=== PATIENT | female | born 1975 | race Caucasian/White ===

== ENCOUNTER → 2016-09-24 | Outpatient (CLI) | payer OTHER ==
[~2016-09-24] MED LIST: ATV5X PO; BCPILLS PO; FLUO10CA48 PO; LEVO25TA5 PO; MULT-612 PO; OMEP40CA41 PO; OXYC1TAB3 PO; RANI150T3 PO
--- NOTE | 2016-09-24 16:08 | MAMMOGRAPHY REPORT ---
ULTRASOUND OF RIGHT BREAST: 09/24/2016 CLINICAL HISTORY: 41-year-old woman with a family history of breast cancer = mother and aunt present s for follow-up ultrasound of the right breast. The exam performed on 07/13/2016 reported a newly v isualized possible complicated cyst in the 10:00 right breast, 5 cm from the nipple and other probab le fibrocystic changes throughout the right breast on ultrasound. COMPARISON: Comparison is made to exams dated: 07/05/2014 ultrasound and 07/05/2014 mammogram - [facility]. FINDINGS: Real-time high-resolution ultrasound was performed in the 10:00 to 11:00 axes of the right breast. In the 10:00 right breast, 3 cm from the nipple, there is an oval parallel circumscribed h ypoechoic solid mass versus normal fat lobule. It is located 1-1/2 cm deep to the dermis and measur es 8.7 x 3.9 x 7.6 mm. This was not seen on the previous ultrasounds but may simply represent a fat lobule. In the 10:00 right breast, 5 cm from the nipple, there is a circumscribed parallel slightl y hypoechoic mass with posterior acoustic enhancement, measuring 9.0 x 5.3 x 10.3 mm. The ultrasoun d measurements are similar to those obtained on 07/13/2016. However, this mass was not visualized o n 08/01/2015, and visually it appears thicker comparing to the prior ultrasound at which time it asiya eared more elongated. This is indeterminate given the interval development. Another rounded hypoec hoic solid-appearing mass is identified in the 10:00 right breast, 1 cm from the nipple, measuring 3 .9 x 3.3 x 3.8 mm. This was seen on the prior ultrasounds dating back to 08/01/2015 but it was not measured at that time. Therefore, this is also indeterminate. IMPRESSION: ACR BI-RADS CATEGORY 4: SUSPICIOUS - FOLLOW-UP RECOMMENDED 1. Ultrasound guided core needle biopsy 2 is recommended in the right 10:00 breast, 1 cm and 5 cm from the nipple, for indeterminate solid-appearing masses identified on ultrasound. These results and recommendations were discussed with the patient at the time of the exam. Pending pathology results, would continue breast screening regimen including bilateral mammography due in De cember 2017 plus or minus the addition of whole breast screening ultrasound as well, given her famil y history of breast cancer. Kellie Beckman M.D. ay/:09/24/2016 15:47:48 Client Success Specialist: Yu CARRION)(Andra), [facility] letter sent: Abnormal 4/5 BI-RADS Code: ACR BI-RADS Category 4: Suspicious
== END | disposition home or self-care (01) ==
LOC: C.MAMM 13:26
PROVIDERS: ATTEND Obstetrics & Gynecology
DX: N64.89 Other specified disorders of breast (principal)

== ENCOUNTER → 2016-10-09 | Outpatient (CLI) | payer OTHER ==
--- NOTE | 2016-10-09 09:49 | Discharge Instructions ---
Discharge Instructions Procedure Procedure Date: Oct 09, 2016. Reason for visit: Right Masses. Discharge Discharge Date: Oct 09, 2016. Discharge Diagnosis: post right 10:00 breast ultrasound guided core biopsy x 2 Instructions Activity Recommendations: Additional Limitations (see below) Return to School/Work: no limitations Recommended Home Diet: No Limitations Provider Instructions: ACTIVITY RECOMMENDATIONS: * No lifting, pushing, pulling or exercising the affected side for three days. RETURN TO SCHOOL/WORK: * You may return to work/school after the procedure, but do not perform any strenuous activities for 24 to 48 hours. MEDICATIONS: * Tylenol (two 325 mg) every four to six hours if needed for mild pain (if not allergic to Tylenol). DIET: * Resume previous diet. SPECIAL CARE INSTRUCTIONS: * Keep biopsy site dry for 24 hours. May shower after 24 hours, but do not soak (bathe) incision. * May remove Tegaderm (plastic patch) tomorrow AFTER showering. * Leave the steri-strips on for one week. Allow the steri-strips to fall off by themselves. If not off after one week, you may remove them. You may place a Bandaid crosswise over the strips, if desired. * Apply ice 10 minutes on and 10 minutes off as needed. * Wear a bra at bedtime to sleep more comfortably for 2-3 days. * Your referring physician should have the results after approximately 5 to 7 business days. * Call for unusual bleeding, fever, drainage, etc or if you have any questions call [phone] during normal business hours or after hours call Dr Beckman, . FOLLOW UP VISIT: Follow-up with Referring Physician as scheduled. Allergies Coded Allergies: Morphine (Verified Allergy, Unknown, HISTAMINE REACTION,BODY ACHES, 08/16/14 ) Hydromorphone (Verified Adverse Reaction, Unknown, SHORTNESS OF BREATH, 08/16/14) patient just states it is very pain ful if mot pushed very slow [place] Recommendations: Call your doctor if: * Temperature above 101 degrees * Pain not relieved by pain medicine ordered * There is increased drainage or redness from any incision * You have any unanswered questions or concerns. Your Doctors Instructions noted above were prepared by provider Kellie Beckman. Patient Signature Section: Patient Instructions Signature Page Daniela Donahue Patient (or Guardian) Signature/Date: I have read and understand the instructions given to me by my caregivers. Caregiver/RN/Doctor Signature/Date: The above-named patient and/or guardian has received patient instructions on this date. + Original Patient Signature Page (only) stays with chart. Please make copy for patient.
--- NOTE | 2016-10-09 13:36 | MAMMOGRAPHY REPORT ---
ULTRASOUND GUIDED BIOPSY RIGHT BREAST: 10/09/2016 CLINICAL HISTORY: 2 indeterminate solid versus cystic masses in the 10:00 right breast, 1 cm from th e nipple and 5 cm from the nipple. Patient presents for ultrasound-guided core needle biopsy 2. Please refer to the report from right breast ultrasound guided core biopsy performed at the same reji e for full detail. IMPRESSION: ULTRASOUND GUIDED BIOPSY Please refer to the report from right breast ultrasound guided core biopsy performed at the same reji e for full detail. Kellie Beckman M.D. ay/:10/09/2016 11:36:47 Business Process Expert: Yu CARRION)(Andra), [facility]
--- NOTE | 2016-10-09 13:37 | MAMMOGRAPHY REPORT ---
UNILATERAL RIGHT DIGITAL DIAGNOSTIC MAMMOGRAM TOMOSYNTHESIS: 10/09/2016 CLINICAL HISTORY: Status post ultrasound guided core needle biopsy 2 in the right 10:00 breast. Please refer to the report from right breast ultrasound guided core biopsy performed at the same reji e for full detail. IMPRESSION: POST PROCEDURE IMAGING FOR MARKER PLACEMENT Please refer to the report from right breast ultrasound guided core biopsy performed at the same reji e for full detail. Approximately 10% of breast cancers are not detected with mammography. A negative mammographic repor t should not delay biopsy if a clinically suggestive mass is present. Kellie Beckman M.D. ay/:10/09/2016 09:51:04 Learning Development Specialist: Yu CARRION)(Andra), [facility] [address] BI-RADS Code: Post Procedure Imaging For Marker Placement
--- NOTE | 2016-10-09 16:39 | MAMMOGRAPHY REPORT ---
THIS REPORT HAS BEEN AMENDED. MULTIPLE ULTRASOUND GUIDED BIOPSIES RIGHT BREAST: 10/09/2016 CLINICAL HISTORY: 41-year-old woman with indeterminate solid-appearing masses in the 10:00 right lori ast, 1 cm and 5 cm from the nipple. She presents for ultrasound guided core needle biopsy 2. COMPARISON: Comparison is made to exams dated: 09/24/2016 ultrasound, 07/05/2014 ultrasound, and mammogram - [facility]. PATIENT CONSENT: The procedure, risks and benefits were discussed with the patient and informed writ ten consent was obtained. Specific risks to this procedure include: bleeding, infection, puncture of adjacent structure, nontarget biopsy, sampling error, metal allergy and medication reaction. PROCEDURE DESCRIPTION: A time out was performed and the right breast was agreed as the site of biops y. The skin was prepped and draped in the usual sterile fashion. First the smaller rounded hypoecho ic solid versus cystic mass in the 10:00 right breast, 1 cm from the nipple was identified and targe kieran for biopsy. Skin was prepped and draped in the usual sterile fashion. Subcutaneous and intrapa renchymal 1% buffered lidocaine, with and without epinephrine, was administered as local anesthesia. A skin incision was made. Through the incision, 2 samples were obtained with a 14 gauge Achieve bi opsy device. After the second biopsy sample the mass was no longer visualized, likely representing a cyst that resolved. Therefore, a ribbon shaped metallic marker was placed at the biopsy site. Hem ostasis was achieved after manual compression. The patient tolerated the procedure well and there wa s no immediate complication. Then the slightly larger isoechoic solid versus cystic mass in the 10:00 right breast, 57 m from the nipple was identified and targeted for biopsy. Additional buffered lidocaine with and without epin ephrine was administered as local anesthesia. A small skin incision was made. Through the incision , 3 samples were obtained using a 14-gauge achieve core biopsy device. A wing shaped metallic biops y marker was placed within this mass. There was no immediate complication. All of the samples were sent to the pathology department in appropriately labeled containers. Postprocedure right CC and ML 2-D digital and tomosynthesis images demonstrate 2 new metallic biopsy markers and no significant hematoma in the 10:00 anterior and posterior breast, at the site of the biopsied masses seen on ultrasound. Pending benign pathology results, a short interval follow-up right mammogram including repeat target ed ultrasound in the 10:00 axis is recommended to ensure stability of a third non-biopsied benign-ap pearing mass versus fat lobule as well as the 2 biopsied masses in 6 months. IMPRESSION: ULTRASOUND GUIDED BIOPSY Status post ultrasound guided core needle biopsy of 2 indeterminate masses in the 10:00 right breast , with biopsy markers placed at each site. Pending benign pathology results, follow-up right diagnostic mammograms and repeat targeted ultrasou nd in the 10:00 axis is recommended to ensure stability of the non-biopsied mass versus fat lobule a lso identified in the 10:00 breast, as well as the 2 biopsied masses detailed above. Kellie Beckman M.D. ay/:10/09/2016 15:31:07 Thread Weaver: Yu CARRION)(Andra), [facility] AMENDMENT: 10/18/2016 Kellie Beckman M.D. Pathology results from the ultrasound-guided core needle biopsy of a mass in the 10:00 right breast, 1 cm from the nipple yielded fibrocystic change. Pathology from the ultrasound-guided core biopsy of a mass in the 10:00 right breast, 5 cm from the nipple yielded fibrocystic change. The pathology results are concordant with the imaging appearance of both masses as they were decreasing in size d uring the biopsies. A follow-up right diagnostic mammogram and repeat targeted ultrasound in the 10 :00 axis is still recommended to ensure stability of the other non-biopsied mass versus fat lobule, as previously described.
== END | disposition home or self-care (01) ==
LOC: C.MAMM 08:35
PROVIDERS: ATTEND Registered Nurse
DX: N63 Unspecified lump in breast (principal)

== ENCOUNTER → 2017-06-05 | Outpatient (CLI) | payer OTHER ==
--- NOTE | 2017-06-07 08:14 | MAMMOGRAPHY REPORT ---
BILATERAL DIGITAL DIAGNOSTIC MAMMOGRAM TOMOSYNTHESIS WITH CAD AND TARGETED BILATERAL ULTRASOUND: 05/16 CLINICAL HISTORY: 42-year-old woman presents after 2 benign right breast biopsies in the 10:00 axis y ielded fibrocystic change. Also due for annual bilateral mammography. TECHNIQUE: Bilateral breast tomosynthesis in addition to standard 2D mammography was [facility] Computer Aided Detection (CAD) system. COMPARISON: Comparison is made to exams dated: 10/09/2016 mammogram, 10/09/2016 ultrasound biopsy, 09/13 ultrasound biopsy, 09/24/2016 ultrasound, 07/05/2014 ultrasound, and 07/05/2014 mammogram - [facility]. BREAST COMPOSITION: The tissue of both breasts is heterogeneously dense, which may obscure small mas ses. FINDINGS: There are 2 stable metallic biopsy marker is in the 10:00 right breast anterior and middle depth. Slight nodularity in the superior middle to anterior left breast on the MLO could represent cysts although additional evaluation with ultrasound was performed. No other obvious new mass, focal area of architectural distortion or suspicious macrocalcifications are seen bilaterally. Targeted ultrasound was performed throughout the right 10:00 axis and the left superior breast. In t he 10:00 right breast, 1 cm from the nipple, numerous anechoic benign cysts are seen. The previously observed hypoechoic indeterminate solid versus cystic mass is not currently identified. In the 10:0 0 right breast, 3 cm from the nipple, there is an oval parallel circumscribed hypoechoic benign-appea ring solid mass versus prominent fat lobule measuring 9.6 x 3.6 x 8.4 mm. A new multilobulated anech oic cyst is identified in the 10:00 right breast, 2 cm from the nipple, measuring 6.5 x 6.1 mm. Anot her anechoic cyst is seen in the 10:00 right breast, 4 cm from the nipple, measuring 5.0 x 3.2 mm the biopsied mass in the 10:00 axis, 5 cm from the nipple has decreased in size, currently measuring 6.3 x 3.0 x 6.5 mm. Within the left breast 3:00 axis, there is a lobulated hypoechoic cystic appearing mass measuring 7.7 x 2.8 x 2.9 mm. An indeterminate isoechoic solid versus cystic mass in the 2:00 l eft breast, 3 cm from the nipple measures 3.7 x 2.5 x 3.6 mm. An anechoic cyst in the 2:[address], 3 cm from the nipple measures 3.8 mm. Another oval parallel circumscribed hypoechoic solid versu s cystic mass in the 12:00 left breast, 1 cm from the nipple measures 5.7 x 2.5 x 4.7 mm. No suspici ous solid mass is seen in the left superior breast on targeted ultrasound. IMPRESSION: ACR-BI-RADS CATEGORY 3: PROBABLY BENIGN, TARGETED ULTRASOUND ACR-BI-RADS CATEGORY 3: PRO BABLY BENIGN 1. There are stable postbiopsy changes in the right breast mammographically without evidence of a ne w suspicious mammographic mass, distortion or calcifications. 2. Sonographic findings in the 10:00 right breast demonstrate increase in the number of anechoic jossie ign simple cysts, compatible with fibrocystic changes. The biopsied mass in the 10:00 axis, 5 cm fro m the nipple has decreased and the mass previously seen in the 10:00 axis, 1 cm from the nipple is no longer clearly identified. The benign appearing mass versus fat lobule in the 10:00 axis, 3 cm from the nipple is stable dating back to at least 07/13/2016, therefore likely benign. 3. There is slight nodularity in the superior left breast mammographically with numerous scattered c ysts and benign-appearing solid versus cystic masses on ultrasound. Although these findings most lik karis represent benign fibrocystic changes, 6 month follow-up bilateral breast targeted ultrasound is r ecommended in the left breast 12:00 to 2:00 and 3:00 axes and right breast 10:00 axis to ensure stabi lity. 4. Pending stability at follow-up ultrasound, would recommend bilateral mammography in May 2018 . These results and recommendations were discussed with the patient at the time of the exam. Approximately 10% of breast cancers are not detected with mammography. A negative mammographic report should not delay biopsy if a clinically suggestive mass is present. Kellie Beckman M.D. ay/:06/05/2017 15:02:26 Filter Tank Operator: Betzaida GÓMEZ(Azar)(Andra), [facility] letter sent: Follow Up Recommended 3 BI-RADS Code: ACR-BI-RADS Category 3: Probably Benign Ultrasound BI-RADS: ACR-BI-RADS Category 3: Pr obably Benign
== END | disposition home or self-care (01) ==
LOC: C.MAMM 07:41
PROVIDERS: ATTEND Registered Nurse
DX: N64.89 Other specified disorders of breast (principal); R92.2 Inconclusive mammogram